=== PATIENT | female | born 1975 | race Caucasian/White ===

== ENCOUNTER 2023-06-24 01:39 | Emergency (ER) | payer BC, SELFPAY ==
[2023-06-24 01:42] VITALS: BP 119/81; PULSE 89; RESP 18; TEMP 36.1; O2SAT 97; BMI 29.5
--- NOTE | 2023-06-24 01:51 | ED_ITS ---
Discharge Plan Disposition Patient Disposition: Home, Self-Care Prescriptions Prescriptions: No Action azithromycin 250 mg tablet See Rx Instructions PO .COMPLEX Qty: 6 0RF Rx Instructions: For 250 mg dose pack: take 500 mg today (day 1), then 250 mg for 4 days (days 2-5) PO [id number] [Bromfed DM] 2-30-10 mg/5 mL syrup 10 ml PO Q4-6H PRN (Reason: sinus symptoms) Qty: 200 0RF Referrals Follow up/Referrals: Provider,Referral, MD [Primary Care Provider] - See instructions Activity Restrictions/Add. Instructions Additional Instructions/Restrictions: Please follow-up with your primary care provider. Please return to the emergency department if you develop any new or worsening symptoms or become co ncerned for your health. Clinical Impressions Clinical Impression: Acute idiopathic urticaria Discharge ED Provider: Dima Vallejo General Adult HPI General Chief complaint: Allergic Reaction Stated complaint: itching whole body,trouble breathing,upset stomach Time Seen by Provider: 06/24/23 01:40 History of Present Illness HPI narrative: 48-year-old female with no significant past medical history presents with diffuse hives. She reports that it started tonight. She denies any recent exposure, new detergent etc. She is not on any medications, denies any recent illness. She denies any shortness of breath or oropharyngeal swelling. She reports that her stomach was rumbling but she has had no vomiting or diarrhea. She took 50 of Benadryl prior to arrival and has had improvement of symptoms since that time. Related Data Previous Rx's Medication Instructions Recorded azithromycin 250 mg tablet See Rx Instructions PO .COMPLEX #6 01/10/21 tabs [id number] 10 ml PO Q4-6H PRN sinus symptoms 01/10/21 2 mg-30 mg-10 mg/5 mL oral syrup #200 mL (Bromfed DM) Allergies Allergy/AdvReac Type Severity Reaction Status Date / Time No Known Allergies Allergy Verified 01/10/21 11:44 [facility] Disclaimer: The information contained in this section may have been updated after the patient was seen, as this information can be updated by other users. Social History Smoking Status: Never smoker second hand exposure: No alcohol intake: never current occupational status: employed Travel in the last 8 weeks: None household members: spouse housing: house ROS Obtained: Yes All systems reviewed & no additional complaints except as documented Physical Exam General General appearance: alert and in no apparent distress Head Head exam: atraumatic and normocephalic Eye Eye exam: Present normal appearance, PERRL and EOMI ENT ENT exam: Present normal oropharynx and normal external ear exam Neck Neck exam: Present normal inspection and full ROM Chest Chest inspection: Present normal inspection and symmetric chest wall rise; Absent tenderness Respiratory Respiratory exam: Present normal lung sounds bilaterally; Absent respiratory distress Cardiovascular Cardiovascular exam: Present regular rate and normal rhythm Abdominal Exam Abdominal exam: Present soft; Absent distention, tenderness or guarding Extremities Exam Extremities exam: Present normal inspection; Absent edema or joint swelling Back Exam Back exam: Present normal inspection; Absent tenderness Neurological Exam Neurological exam: Present alert and oriented X3; Absent motor sensory deficit Psychiatric Psychiatric exam: Present normal affect and normal mood Skin Skin exam: Present warm, dry, normal color and rash (Hives over the abdomen, redness over the extremities) Lymphatic Lymphatic Findings: no adenopathy Medical Decision Making Medical Records Medical records reviewed: Yes I reviewed the patient's medical records. Alonso Inquiry Pt receiving controlled substance: No Alonso was queried for this patient: No Vital Signs: 06/24/23 01:42 06/24/23 02:37 Temperature 97.0 F L 98 F Temperature Source Temporal Artery Scan Oral Pulse Rate 69 Pulse Rate [Left Radial] 89 Respiratory Rate 18 16 Blood Pressure 107/74 L Blood Pressure [Right Arm] 119/81 Blood Pressure Mean [Right Arm] 93 Blood Pressure Source Automatic Cuff Blood Pressure Source [Right Arm] Automatic Cuff Blood Pressure Position Sitting Blood Pressure Position [Right Arm] Sitting 02 Sat by Pulse Oximetry 97 Oxygen Delivery Method Room Air Room Air Lab Data Lab results reviewed: Yes I reviewed the patient's lab results. Orders (Tests/Meds): ED MEDICATIONS Discontinued Medications Generic Name Dose Route Start Last Admin Trade Name Freq PRN Reason Stop Dose Admin Dexamethasone 10 mg 06/24/23 01:51 06/24/23 01:58 Dexamethasone 4mg Tablet PO 06/24/23 01:52 10 mg ONCE ONE Administration Medical Decision Narrative: 48-year-old female without past medical history presents with acute onset generalized hives. History was obtained interactive discussion with patient, family. On arrival, patient is [afebrile, hemodynamically stable, satting appropriately, alert, oriented x4, GCS 15], moving all extremities spontaneously. Full physical exam performed and significant for diffuse rash consistent with hives, no intraoral swelling, clear lungs bilaterally, patient generally well-appearing Differential includes but is not limited to anaphylaxis, acute idiopathic hives, allergic reaction. Patient was given 10 mg p.o. Dex for symptomatic management and correction of underlying abnormalities. IM epinephrine was considered, but deemed unnecessary due to no evidence of anaphylaxis at this time. Given patient history, exam and workup, patient's presentation most likely represents acute idiopathic urticaria. Patient was observed for period of time in the ER, remained stable and was discharged with instructions to take Benadryl as needed. Return precautions given. Procedures Risk/Benefits of Procedure(s) Were Explained: Yes Critical Care Critical Care Time Critical Care Time: No
[2023-06-24] MEDS: DEXAMETHASONE 4MG TABLET 10 MG PO (01:58)
[2023-06-24 02:37] VITALS: BP 107/74; PULSE 69; RESP 16; TEMP 36.6; O2SAT 98
== END 2023-06-24 02:38 | disposition home or self-care (01) ==
PROVIDERS: Emergency Provider Emergency Medicine
DX: L50.1 Idiopathic urticaria (principal)
CPT/HCPCS: 99283